=== PATIENT | male | born 1970 | race Caucasian/White ===

== ENCOUNTER 2016-03-28 13:58 | Emergency (ER) | payer MEDICARE, OTHER ==
--- NOTE | 2016-03-28 14:52 | ED ---
Extremity Problem HPI - General Chief complaint: Extremity Problem,Nontraumatic Stated complaint: Right Foot Swollen Time Seen by Provider: 03/28/16 14:21 Source: patient, RN notes reviewed Mode of arrival: ambulatory Limitations: no limitations - History of Present Illness Initial comments: Patient is a 45 [place] chief complaint of right ankle foot and pain swelling intermittently for the past 2 months. Patient reports he has a history of gout but usually this manifests in his left foot. Patient reports that his foot feels warm to touch. He states that is difficult to put weight on it. He has been on medications for gout including allopurinol and indomethacin. He states he did not take his indomethacin today. He has a past medical history of hypertension and diabetes. Patient reports that he is concerned that he has a acute gout Exacerbation. He denies any specific injury or trauma to the area. He denies any peripheral paresthesias. Patient reports that the swelling and pain will last for about 2 weeks and then will subside for a week. Patient reports that this is, his previous gout exacerbations - Related Data Home Medications Medication Instructions Recorded Confirmed Allopurinol [Zyloprim] 100 mg PO BID 03/28/16 03/28/16 Escitalopram [Lexapro] 10 mg PO DAILY 03/28/16 03/28/16 Fenofibrate Nanocrystallized 145 mg PO DAILY 03/28/16 03/28/16 [Tricor] Furosemide [Lasix] 40 mg PO DAILY 03/28/16 03/28/16 Indomethacin [Indocin] 50 mg PO BID PRN 03/28/16 03/28/16 Levothyroxine Sodium [Synthroid] 200 mcg PO DAILY 03/28/16 03/28/16 lamoTRIgine [LaMICtal] 100 mg PO DAILY 03/28/16 03/28/16 Previous Rx's Medication Instructions Recorded Colchicine [Colcrys] 0.6 mg PO BID #6 tablet 03/28/16 Indomethacin [Indocin] 50 mg PO BID #20 capsule 03/28/16 predniSONE 50 mg PO DAILY #5 tab 03/28/16 Allergies Allergy/AdvReac Type Severity Reaction Status Date / Time No Known Allergies Allergy Verified 03/28/16 15:12 Review of Systems ROS Statement: Those systems with pertinent positive or pertinent negative responses have been documented in the HPI. ROS Other: All systems not noted in ROS Statement are negative. Past Medical History Past Medical History: No Reported History, Thyroid Disorder Additional Past Medical History / Comment(s): gout History of Any Multi-Drug Resistant Organisms: None Reported Past Surgical History: Appendectomy Past Psychological History: No Psychological Hx Reported Smoking Status: Never smoker Past Alcohol Use History: None Reported Past Drug Use History: None Reported General Exam - General Exam Comments Initial Comments: Patient is a pleasant 45-year-old male. He does not appear to be in any acute distress. Limitations: no limitations General appearance: alert, in no apparent distress Head exam: Present: atraumatic Eye exam: Present: normal appearance, PERRL, EOMI. Absent: scleral icterus, conjunctival injection, periorbital swelling ENT exam: Present: normal exam, mucous membranes moist Neck exam: Present: normal inspection. Absent: tenderness, meningismus, lymphadenopathy Respiratory exam: Present: normal lung sounds bilaterally. Absent: respiratory distress, wheezes, rales, rhonchi, stridor Cardiovascular Exam: Present: regular rate, normal rhythm, normal heart sounds. Absent: systolic murmur, diastolic murmur, rubs, gallop, clicks GI/Abdominal exam: Present: soft, normal bowel sounds. Absent: distended, tenderness, guarding, rebound, rigid Extremities exam: Present: normal inspection, full ROM, normal capillary refill. Absent: tenderness, pedal edema, joint swelling, calf tenderness Right Lower Leg exam: Present: normal inspection, full ROM Ankle exam: Present: normal inspection, full ROM Foot/Toe exam: Present: full ROM, swelling (Diffuse swelling over the total metatarsals. Areas of erythema.), erythema. Absent: normal inspection Neurovascular tendon exam: Present: no vascular compromise Gait: observed and limited by pain Back exam: Present: normal inspection Neurological exam: Present: alert, oriented X3, CN II-XII intact Psychiatric exam: Present: normal affect, normal mood Skin exam: Present: warm, dry, intact, normal color. Absent: rash Course Vital Signs 03/28/16 15:08 Temperature 97.5 F L Pulse Rate 81 Respiratory 18 Rate Blood Pressure 152/88 O2 Sat by Pulse 95 Oximetry Medical Decision Making - Medical Decision Making Patient is a 45-year-old male with intermittent right foot pain. Patient reports he's had a history of gout exacerbation similar to this however they usually in the left foot. Patient's laboratory was reviewed. He does have an elevated uric acid of 10.1. Also elevated CRP of 35. No evidence of infection. Patient is currently taking allopurinol and indomethacin. Patient does have history of having a pressure takes Lasix. Patient will be placed on colchicine, steriods, and refill of indomethacin. Patient advised to follow up with PCP and advised on diet changes for gout. Return parameters discussed. - Lab Data Result diagrams: 03/28/16 14:40 03/28/16 14:40 Lab Results 03/28/16 03/28/16 Range/Units 14:40 14:40 WBC 8.3 (3.8-10.6) k/uL RBC 4.96 (4.30-5.90) m/uL Hgb 13.8 (13.0-17.5) gm/dL Hct 44.0 (39.0-53.0) % MCV 88.5 (80.0-100.0) fL MCH 27.8 (25.0-35.0) pg MCHC 31.4 (31.0-37.0) g/dL RDW 14.5 (11.5-15.5) % Plt Count 315 (150-450) k/uL Neutrophils % 64 % Lymphocytes % 25 % Monocytes % 5 % Eosinophils % 4 % Basophils % 1 % Neutrophils # 5.3 (1.3-7.7) k/uL Lymphocytes # 2.1 (1.0-4.8) k/uL Monocytes # 0.4 (0-1.0) k/uL Eosinophils # 0.3 (0-0.7) k/uL Basophils # 0.1 (0-0.2) k/uL Hypochromasia Slight Sodium 142 (137-145) mmol/L Potassium 4.1 (3.5-5.1) mmol/L Chloride 105 (98-107) mmol/L Carbon Dioxide 25 (22-30) mmol/L Anion Gap 12 mmol/L BUN 15 (9-20) mg/dL Creatinine 0.90 (0.66-1.25) mg/dL Est GFR (MDRD) Af Amer >60 (>60 ml/min/1.73 sqM) Est GFR (MDRD) Non-Af >60 (>60 ml/min/1.73 sqM) Glucose 113 H (74-99) mg/dL Uric Acid 10.1 H (3.5-8.5) mg/dL Calcium 9.4 (8.4-10.2) mg/dL C-Reactive Protein 35.0 H (<10.0) mg/L - Radiology Data Radiology results: report reviewed X-ray shows no acute fracture dislocation. The soft tissue appears unremarkable. Joint spaces are within normal limits. Disposition Clinical Impression: Gout attack Disposition: HOME SELF-CARE Condition: Good Instructions: Gout (ED) Additional Instructions: Patient advised to follow up with primary care provider within the next week. Take anti-inflammatory and steroids as prescribed. Patient is to return to the emergency department if any alarming signs or symptoms occur. Prescriptions: Colchicine [Colcrys] 0.6 mg PO BID #6 tablet Indomethacin [Indocin] 50 mg PO BID #20 capsule predniSONE 50 mg PO DAILY #5 tab Referrals: Toney Zayas DO [Primary Care Provider] - 1-2 days Time of Disposition: 15:36
[2016-03-28 15:00] LABS: Basophils # (A) 0.1 k/uL (0-0.2); Basophils % (A) 1 %; CH 27.9; CHCM 31.6; Eosinophils # (A) 0.3 k/uL (0-0.7); Eosinophils % (A) 4 %; HDW 2.88; HGB 13.8 gm/dL (13.0-17.5); Hypochromasia Slight; Luc # (Auto) 0.15; Luc % (Auto) 2; Lymphocytes # (A) 2.1 k/uL (1.0-4.8); Lymphocytes % (A) 25 %; MCH 27.8 pg (25.0-35.0); MCHC 31.4 g/dL (31.0-37.0); MCV 88.5 fL (80.0-100.0); Mean Platelet Volume 7.3; Monocytes # (A) 0.4 k/uL (0-1.0); Monocytes % (A) 5 %; Neutrophils # (A) 5.3 k/uL (1.3-7.7); Neutrophils % (A) 64 %; RBC 4.96 m/uL (4.30-5.90); RDW 14.5 % (11.5-15.5); WBC 8.3 k/uL (3.8-10.6); WBC (Perox) 8.32
[2016-03-28 15:08] VITALS: BP 152/88; PULSE 81; RESP 18; TEMP 97.5
[2016-03-28 15:10] LABS: Anion Gap 12 mmol/L; Blood Urea Nitrogen 15 mg/dL (9-20); Calcium 9.4 mg/dL (8.4-10.2); Carbon Dioxide 25 mmol/L (22-30); Chloride 105 mmol/L (98-107); Glucose 113 mg/dL (74-99); Non-African American GFR(MDRD) >60 (>60 ml/min/1.73 sqM); Potassium 4.1 mmol/L (3.5-5.1); Sodium 142 mmol/L (137-145); Uric Acid 10.1 mg/dL (3.5-8.5)
--- NOTE | 2016-03-28 15:10 | XR ---
EXAMINATION TYPE: XR foot complete RT DATE OF EXAM: 03/28/2016 2:49 PM CLINICAL HISTORY: pain TECHNIQUE: Frontal, lateral and oblique images of the right foot are obtained. COMPARISON: None. FINDINGS: There is no acute fracture/dislocation evident. The joint spaces appear within normal monosn its. The overlying soft tissue appears unremarkable. IMPRESSION: There is no acute fracture or dislocation. ICD 10 NO FRACTURE, INITIAL EVALUATION
[2016-03-28] MEDS ORDERED: KETOROLAC 60 MG/2 ML VIAL IM STA (15:27)
[2016-03-28] MEDS ORDERED: methylPREDNISolone SOD SUCCI 125 MG/2 ML VIAL IM ONE (15:27)
== END 2016-03-28 15:53 | disposition home or self-care (01) ==
LOC: EC 13:58
DX: M10.9 Gout, unspecified (principal); E07.9 Disorder of thyroid, unspecified; Z79.52 Long term (current) use of systemic steroids; Z79.899 Other long term (current) drug therapy
CPT/HCPCS: 36415; 80048; 84550; 85025; 86140; 73630; 99283; 96372 ×2; J2930; J1885

== ENCOUNTER 2017-02-01 11:18 | Emergency (ER) | payer OTHER, MEDICARE ==
[2017-02-01] MEDS ORDERED: SODIUM CHLORIDE 0.9% 1,000 ML IV ONE (11:51)
[2017-02-01] MEDS ORDERED: MORPHINE SULFATE 5 MG/ML SYRINGE IVP STA (11:59)
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
[2017-02-01 13:02] VITALS: RESP 18
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
[2017-02-01 13:36] VITALS: BP 139/90; PULSE 58; TEMP 96.9
== END 2017-02-01 13:50 | disposition home or self-care (01) ==
LOC: EC 11:18
DX: M79.1 Myalgia (principal); E07.9 Disorder of thyroid, unspecified; Z79.899 Other long term (current) drug therapy; V44.6XXA Car passenger injured in collision with heavy transport vehicle or bus in traffic accident, initial encounter; Y92.410 Unspecified street and highway as the place of occurrence of the external cause
CPT/HCPCS: 72128; 72125; 72131; 70450; 99284; 96374; 96361; J2274

== ENCOUNTER 2017-02-07 16:17 | Emergency (ER) | payer MEDICARE, OTHER ==
[2017-02-07] MEDS ORDERED: KETOROLAC 30 MG/ML 1 ML VIAL IM STA (17:00)
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
--- NOTE | 2017-02-07 17:26 | XR ---
EXAMINATION TYPE: XR foot complete LT DATE OF EXAM: 02/07/2017 COMPARISON: NONE HISTORY: Back pain TECHNIQUE: 3 views FINDINGS: There is some narrowing and spurring at the first MP joint and the IP joint of the big toe. I see no fracture nor dislocation. There is an Achilles calcaneal spur. Metatarsals are intact. IMPRESSION: Mild osteoarthritis. No fracture seen.
--- NOTE | 2017-02-07 17:36 | XR ---
EXAMINATION TYPE: XR ankle complete LT DATE OF EXAM: 02/07/2017 COMPARISON: NONE HISTORY: Pain TECHNIQUE: 3 views FINDINGS: There is soft tissue swelling around the ankle joint. There is an Achilles calcaneal spur. I see no fracture. IMPRESSION: Soft tissue swelling. No fracture seen.
--- NOTE | 2017-02-07 17:37 | XR ---
EXAMINATION TYPE: XR lumbar spine 2 or 3V DATE OF EXAM: 02/07/2017 COMPARISON: NONE HISTORY: Pain TECHNIQUE: 3 views FINDINGS: Lumbar vertebra have normal alignment. Posterior elements are intact. Sacroiliac joints are normal. Disc spaces are fairly normal. IMPRESSION: Negative lumbar spine exam. Minimal spurring noted.
[2017-02-07 23:33] VITALS: BP 160/90; PULSE 87; RESP 18; TEMP 98
== END 2017-02-07 18:01 | disposition home or self-care (01) ==
LOC: EC 16:17
DX: S93.402A Sprain of unspecified ligament of left ankle, initial encounter (principal); S96.912A Strain of unspecified muscle and tendon at ankle and foot level, left foot, initial encounter; M54.5 Low back pain; E07.9 Disorder of thyroid, unspecified; M10.9 Gout, unspecified; Z79.899 Other long term (current) drug therapy; V44.5XXA Car driver injured in collision with heavy transport vehicle or bus in traffic accident, initial encounter; Y92.410 Unspecified street and highway as the place of occurrence of the external cause
CPT/HCPCS: 72100; 73610; 73630; 99284; 96372; J1885

== ENCOUNTER 2017-02-11 11:11 | Emergency (ER) | payer OTHER, MEDICARE ==
[2017-02-11] MEDS ORDERED: KETOROLAC 30 MG/ML 1 ML VIAL IVP STA ×2 (11:44→13:07)
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
[2017-02-11 12:17] LABS: Basophils # (A) 0.1 k/uL (0-0.2); Basophils % (A) 1 %; Eosinophils # (A) 0.2 k/uL (0-0.7); Eosinophils % (A) 2 %; HCT 41.3 % (39.0-53.0); Lymphocytes # (A) 1.8 k/uL (1.0-4.8); Lymphocytes % (A) 19 %; MCHC 31.4 g/dL (31.0-37.0); MCV 92.6 fL (80.0-100.0); Mean Platelet Volume 8.4; Monocytes # (A) 0.7 k/uL (0-1.0); Monocytes % (A) 7 %; Neutrophils # (A) 6.6 k/uL (1.3-7.7); Neutrophils % (A) 70 %; Platelet Count 332 k/uL (150-450); RBC 4.47 m/uL (4.30-5.90); RDW 15.7 % (11.5-15.5); WBC 9.5 k/uL (3.8-10.6)
[2017-02-11 12:26] LABS: ALT 53 U/L (21-72); AST 34 U/L (17-59); Albumin 4.4 g/dL (3.5-5.0); Alkaline Phosphatase 52 U/L (38-126); Anion Gap 12 mmol/L; Blood Urea Nitrogen 18 mg/dL (9-20); Calcium 9.7 mg/dL (8.4-10.2); Carbon Dioxide 27 mmol/L (22-30); Chloride 103 mmol/L (98-107); Glucose 104 mg/dL (74-99); Magnesium 1.9 mg/dL (1.6-2.3); Potassium 4.5 mmol/L (3.5-5.1); Sodium 142 mmol/L (137-145); Total Bilirubin 0.5 mg/dL (0.2-1.3); Total Protein 7.2 g/dL (6.3-8.2); Uric Acid 6.5 mg/dL (3.5-8.5)
[2017-02-11 12:46] LABS: Creatine Kinase MB 2.2 ng/mL (0.0-2.4)
--- NOTE | 2017-02-11 12:46 | XR ---
EXAMINATION TYPE: XR chest 2V DATE OF EXAM: 02/11/2017 HISTORY: cough. REFERENCE: NONE. FINDINGS: The lungs are clear. Pleural space are clear. The heart is not enlarged. There is mild vasc ular congestion and subtle interstitial change.. IMPRESSION: FINDINGS MOST CONSISTENT WITH MILD CONGESTIVE HEART FAILURE.
[2017-02-11] MEDS ORDERED: ORPHENADRINE 30 MG/ML 2 ML VIAL IVP STA (13:07)
[2017-02-11] MEDS ORDERED: DEXAMETHASONE SOD PHOSPHATE 10 MG/ML 1 ML VIAL IV STA (13:08)
[2017-02-11 14:43] VITALS: BP 155/101; PULSE 79; RESP 16; TEMP 98
== END 2017-02-11 14:41 | disposition home or self-care (01) ==
LOC: EC 11:11
DX: M54.41 Lumbago with sciatica, right side (principal); M54.42 Lumbago with sciatica, left side; M79.1 Myalgia; E07.9 Disorder of thyroid, unspecified; Z79.52 Long term (current) use of systemic steroids; Z79.899 Other long term (current) drug therapy
CPT/HCPCS: 99284; 96374; 96375 ×2; 96376; 36415; 85379; 83880; 80053; 82550; 82553; 83735; 84550; 85025; 71046; J1100; J2360; J1885

== ENCOUNTER 2017-03-02 18:12 | Emergency (ER) | payer MEDICARE, OTHER ==
[2017-03-02 18:19] VITALS: BP 121/79; PULSE 119; RESP 18; TEMP 98.6
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
--- NOTE | 2017-03-02 19:46 | XR ---
PROCEDURE: XR ankle complete RT, 3 views DATE AND TIME: 03/02/2017 7:03 PM REFERRING PHYSICIAN: Becca Johnston CLINICAL INDICATION: [facility], Pain TECHNIQUE: Department protocol. COMPARISON: None FINDINGS: There is no fracture or malalignment. The soft tissues are unremarkable. IMPRESSION: NO ACUTE PROCESS.
--- NOTE | 2017-03-02 19:46 | XR ---
PROCEDURE: XR foot complete RT, 3 views DATE AND TIME: 03/02/2017 7:03 PM REFERRING PHYSICIAN: Becca Johnston CLINICAL INDICATION: [facility], Pain TECHNIQUE: Department protocol. COMPARISON: 03/28/2016 FINDINGS: There is no fracture or malalignment. The soft tissues are unremarkable. IMPRESSION: NO ACUTE PROCESS.
== END 2017-03-02 20:08 | disposition home or self-care (01) ==
LOC: EC 18:12
DX: S93.401A Sprain of unspecified ligament of right ankle, initial encounter (principal); S90.31XA Contusion of right foot, initial encounter; M10.9 Gout, unspecified; E07.9 Disorder of thyroid, unspecified; Z79.1 Long term (current) use of non-steroidal anti-inflammatories (NSAID); Z79.899 Other long term (current) drug therapy; V99.XXXA Unspecified transport accident, initial encounter
CPT/HCPCS: 99283

== ENCOUNTER → 2017-03-05 | Outpatient (CLI) | payer OTHER, MEDICARE | END | disposition home or self-care (01) | LOC: RADMRIMAIN 17:53 | PROVIDERS: ATTEND Family Medicine ==

== ENCOUNTER 2017-10-01 09:12 | Emergency (ER) | payer OTHER, MEDICARE ==
--- NOTE | 2017-10-01 09:51 | ED ---
Extremity Problem HPI - General Chief complaint: Extremity Problem,Nontraumatic Stated complaint: leg pain Time Seen by Provider: 10/01/17 09:22 Source: patient, RN notes reviewed Mode of arrival: wheelchair Limitations: no limitations - History of Present Illness Initial comments: This is a 46-year-old male presents emergency Department with chief complaint of left leg pain over the last 4 days. He states is progressively getting worse he has noticed some swelling to his left leg. He states there is no localized pain states the pain is involving his whole leg. He states there is swelling noted. He does admit that he's had gout in the past but this is much different. Patient denies any trauma. Patient did admit that he went to [facility] recently but he has no history DVT in no clotting disorders for the patient or his known family. Patient denies any fever, chills, abdominal pain, back pain. - Related Data Home Medications Medication Instructions Recorded Confirmed Allopurinol [Zyloprim] 100 mg PO AC-BID 03/28/16 10/01/17 Escitalopram [Lexapro] 10 mg PO DAILY 03/28/16 10/01/17 Furosemide [Lasix] 40 mg PO DAILY 03/28/16 10/01/17 Indomethacin [Indocin] 50 mg PO BID PRN 03/28/16 10/01/17 Levothyroxine Sodium [Synthroid] 300 mcg PO DAILY 02/01/17 10/01/17 buPROPion XL [Wellbutrin Xl] 300 mg PO DAILY 10/01/17 10/01/17 lamoTRIgine [LaMICtal] 100 mg PO DAILY 10/01/17 10/01/17 Previous Rx's Medication Instructions Recorded Cephalexin [Keflex] 500 mg PO Q6HR #28 cap 10/01/17 Indomethacin [Indocin] 50 mg PO TID #30 capsule 10/01/17 Allergies Allergy/AdvReac Type Severity Reaction Status Date / Time No Known Allergies Allergy Verified 10/01/17 09:17 Review of Systems ROS Statement: Those systems with pertinent positive or pertinent negative responses have been documented in the HPI. ROS Other: All systems not noted in ROS Statement are negative. Past Medical History Past Medical History: Thyroid Disorder Additional Past Medical History / Comment(s): gout History of Any Multi-Drug Resistant Organisms: None Reported Past Surgical History: Appendectomy Past Psychological History: No Psychological Hx Reported Smoking Status: Never smoker Past Alcohol Use History: None Reported Past Drug Use History: None Reported General Exam Limitations: no limitations General appearance: alert, in no apparent distress Head exam: Present: atraumatic, normocephalic, normal inspection Respiratory exam: Present: normal lung sounds bilaterally. Absent: respiratory distress, wheezes, rales, rhonchi, stridor Cardiovascular Exam: Present: regular rate, normal rhythm, normal heart sounds. Absent: systolic murmur, diastolic murmur, rubs, gallop, clicks GI/Abdominal exam: Present: soft, normal bowel sounds. Absent: distended, tenderness, guarding, rebound, rigid Extremities exam: Present: other (Left leg there is moderate swelling, pedal pulses are equal bilaterally there is diffuse tenderness of the leg. Patient is full range of motion full-strength equal bilaterally 5/5) Back exam: Present: full ROM. Absent: tenderness Neurological exam: Present: alert, oriented X3, CN II-XII intact, reflexes normal. Absent: motor sensory deficit Skin exam: Present: warm, dry, intact, normal color. Absent: rash Course Vital Signs 10/01/17 09:15 Temperature 98.4 F Pulse Rate 92 Respiratory 20 Rate Blood Pressure 149/89 O2 Sat by Pulse 100 Oximetry Medical Decision Making - Medical Decision Making 46-year-old male present emergency from for left leg pain. Patient has left leg swelling. Initial workup included ultrasound venous Doppler left leg showed negative for acute DVT. Patient has Pulse of the lower extremity equal bilaterally. Patient had lab work at this time which shows elevated CRP, uric acid. Concern for gout this time will be treated. Patient does have mild erythema of the calf region concern for possible sinusitis with treated with Keflex at this time return parameters discussed. - Lab Data Result diagrams: 10/01/17 11:30 10/01/17 11:30 Lab Results 10/01/17 10/01/17 10/01/17 Range/Units 11:30 11:30 11:30 WBC 11.4 H (3.8-10.6) k/uL RBC 5.00 (4.30-5.90) m/uL Hgb 13.8 (13.0-17.5) gm/dL Hct 42.3 (39.0-53.0) % MCV 84.6 (80.0-100.0) fL MCH 27.6 (25.0-35.0) pg MCHC 32.7 (31.0-37.0) g/dL RDW 14.1 (11.5-15.5) % Plt Count 250 (150-450) k/uL Neutrophils % 71 % Lymphocytes % 17 % Monocytes % 9 % Eosinophils % 1 % Basophils % 0 % Neutrophils # 8.1 H (1.3-7.7) k/uL Lymphocytes # 1.9 (1.0-4.8) k/uL Monocytes # 1.1 H (0-1.0) k/uL Eosinophils # 0.1 (0-0.7) k/uL Basophils # 0.0 (0-0.2) k/uL Sodium 141 (137-145) mmol/L Potassium 4.2 (3.5-5.1) mmol/L Chloride 107 (98-107) mmol/L Carbon Dioxide 24 (22-30) mmol/L Anion Gap 10 mmol/L BUN 13 (9-20) mg/dL Creatinine 0.60 L (0.66-1.25) mg/dL Est GFR (CKD-EPI)AfAm >90 (>60 ml/min/1.73 sqM) Est GFR (CKD-EPI)NonAf >90 (>60 ml/min/1.73 sqM) Glucose 107 H (74-99) mg/dL Plasma Lactic Acid [place] 1.1 (0.7-2.0) mmol/L Uric Acid 11.1 H (3.5-8.5) mg/dL Calcium 9.3 (8.4-10.2) mg/dL C-Reactive Protein 61.2 H (<10.0) mg/L Disposition Clinical Impression: Gout, Leg edema, Cellulitis Disposition: HOME SELF-CARE Condition: Stable Instructions: Gout (ED) Additional Instructions: Please return to the Emergency Department if symptoms worsen or any other concerns. Prescriptions: Cephalexin [Keflex] 500 mg PO Q6HR #28 cap Indomethacin [Indocin] 50 mg PO TID #30 capsule Is patient prescribed a controlled substance at d/c from ED?: No Referrals: Toney Zayas DO [Primary Care Provider] - 1-2 days Time of Disposition: 12:28
--- NOTE | 2017-10-01 11:02 | US ---
EXAMINATION TYPE: US venous doppler duplex LE LT DATE OF EXAM: 10/01/2017 10:48 AM COMPARISON: NONE CLINICAL HISTORY: Pain. SIDE PERFORMED: Left TECHNIQUE: The lower extremity deep venous system is examined utilizing real time linear array sonog yuli with graded compression, doppler sonography and color-flow sonography. VESSELS IMAGED: External Iliac Vein (EIV) Common Femoral Vein Deep Femoral Vein Greater Saphenous Vein * Femoral Vein Popliteal Vein Small Saphenous Vein * Proximal Calf Veins (* superficial vessels) Grayscale, color doppler, spectral doppler imaging performed of the deep veins of the lower extremiti es. There is normal flow, compressibility, vascular waveforms. Patient obese. Left Leg: Negative for DVT IMPRESSION: No evident deep venous thrombosis at or above the left knee. Follow-up as indicated in 24 to 48 hours.
[2017-10-01] MEDS ORDERED: KETOROLAC 30 MG/ML 1 ML VIAL IVP STA (11:16)
[2017-10-01 11:53] LABS: Basophils % (A) 0 %; Eosinophils # (A) 0.1 k/uL (0-0.7); Eosinophils % (A) 1 %; HCT 42.3 % (39.0-53.0); HGB 13.8 gm/dL (13.0-17.5); Lymphocytes # (A) 1.9 k/uL (1.0-4.8); Lymphocytes % (A) 17 %; MCH 27.6 pg (25.0-35.0); MCHC 32.7 g/dL (31.0-37.0); MCV 84.6 fL (80.0-100.0); Mean Platelet Volume 7.5; Monocytes # (A) 1.1 k/uL (0-1.0); Monocytes % (A) 9 %; Neutrophils # (A) 8.1 k/uL (1.3-7.7); Neutrophils % (A) 71 %; Platelet Count 250 k/uL (150-450); RDW 14.1 % (11.5-15.5); WBC 11.4 k/uL (3.8-10.6)
[2017-10-01 12:00] LABS: Anion Gap 10 mmol/L; Blood Urea Nitrogen 13 mg/dL (9-20); C Reactive Protein 61.2 mg/L (<10.0); Calcium 9.3 mg/dL (8.4-10.2); Carbon Dioxide 24 mmol/L (22-30); Chloride 107 mmol/L (98-107); Glucose 107 mg/dL (74-99); Potassium 4.2 mmol/L (3.5-5.1); Sodium 141 mmol/L (137-145); Uric Acid 11.1 mg/dL (3.5-8.5)
[2017-10-01] MEDS ORDERED: COLCHICINE 0.6 MG EACH PO STA (12:25)
[2017-10-01] MEDS ORDERED: ACET/COD 300 MG/30 MG STARTER PACK 6 TAB BTL PO STA (12:33)
[2017-10-01 12:43] VITALS: BP 149/77; PULSE 88; RESP 18; TEMP 98.5
== END 2017-10-01 12:48 | disposition home or self-care (01) ==
LOC: EC 09:12
DX: M10.9 Gout, unspecified (principal); R60.0 Localized edema; L03.116 Cellulitis of left lower limb; E07.9 Disorder of thyroid, unspecified; Z79.899 Other long term (current) drug therapy
CPT/HCPCS: 36415; 80048; 83605; 84550; 85025; 86140; 87040; 93971; 99284; 96374; J1885

== ENCOUNTER 2018-05-13 15:47 | Emergency (ER) | payer MEDICARE, OTHER ==
[2018-05-13 15:53] VITALS: BP 175/77; PULSE 108; RESP 20; TEMP 97.5
[2018-05-13] MEDS ORDERED: cefTRIAXone 1,000 MG VIAL (IM USE) IM STA (16:32)
[2018-05-13] MEDS ORDERED: LIDOCAINE 1% INJ 10MG/ML (20 ML MDV) SQ STA (16:32)
[2018-05-13] MEDS ORDERED: DIPH,PERTUS(ACELL)TETVAC-LF 0.5 ML VIAL IM ONE (16:32)
--- NOTE | 2018-05-13 16:39 | XR ---
EXAMINATION TYPE: XR hand complete LT DATE OF EXAM: 05/13/2018 COMPARISON: NONE HISTORY: Laceration TECHNIQUE: 3 views FINDINGS: There is some soft tissue deformity at the tip of the index finger consistent with lacerati on. I see no sign of foreign body. There is no evidence of a fracture. IMPRESSION: Laceration deformity of the tip of the index finger involving the nailbed.
--- NOTE | 2018-05-13 17:47 | ED ---
General Adult HPI - General Chief complaint: Wound/Laceration Stated complaint: Hand laceration Time Seen by Provider: 05/13/18 16:10 Source: patient, RN notes reviewed, old records reviewed Mode of arrival: ambulatory Limitations: no limitations - History of Present Illness Initial comments: 47-year-old male patient with no pertinent past medical history presents to ED with injury to second digit of left hand. Patient reports he was using a table saw and actually cut the tip of his left second finger off. Patient states that this injury doesn't involve the distal aspect of his nail bed. Patient doesn't know date of last tetanus. Patient denies any other complaints. Systemic: Pt denies fatigue, myalgia, fever/chills, rash. Pt denies weakness, night sweats, weight loss. Neuro: Pt denies headache, visual disturbances, syncope or pre-syncope. HEENT: Pt denies ocular discharge or irritation, otalgia, rhinorrhea, pharyngitis or notable lymphadenopathy. Cardiopulmonary: Pt denies chest pain, SOB, heart palpitations, dyspnea on exertion. Abdominal/GI: Pt denies abdominal pain, n/v/d. : Pt denies dysuria, burning w/ urination, frequency/urgency. Denies new onset urinary or bowel incontinence. MSK: Pt denies myalgia, loss of strength or function in extremities. Neuro: Pt denies new onset weakness, paresthesias. - Related Data Home Medications Medication Instructions Recorded Confirmed Allopurinol [Zyloprim] 100 mg PO AC-BID 03/28/16 10/01/17 Escitalopram [Lexapro] 10 mg PO DAILY 03/28/16 10/01/17 Furosemide [Lasix] 40 mg PO DAILY 03/28/16 10/01/17 Indomethacin [Indocin] 50 mg PO BID PRN 03/28/16 10/01/17 Levothyroxine Sodium [Synthroid] 300 mcg PO DAILY 02/01/17 10/01/17 buPROPion XL [Wellbutrin Xl] 300 mg PO DAILY 10/01/17 10/01/17 lamoTRIgine [LaMICtal] 100 mg PO DAILY 10/01/17 10/01/17 Previous Rx's Medication Instructions Recorded Cephalexin [Keflex] 500 mg PO Q6HR #28 cap 10/01/17 Indomethacin [Indocin] 50 mg PO TID #30 capsule 10/01/17 Cephalexin [Keflex] 500 mg PO Q6HR 10 Days #40 cap 05/13/18 Allergies Allergy/AdvReac Type Severity Reaction Status Date / Time No Known Allergies Allergy Verified 05/13/18 15:53 Review of Systems ROS Statement: Those systems with pertinent positive or pertinent negative responses have been documented in the HPI. ROS Other: All systems not noted in ROS Statement are negative. Past Medical History Past Medical History: Thyroid Disorder Additional Past Medical History / Comment(s): gout History of Any Multi-Drug Resistant Organisms: None Reported Past Surgical History: Appendectomy Past Psychological History: No Psychological Hx Reported Smoking Status: Never smoker Past Alcohol Use History: None Reported Past Drug Use History: None Reported General Exam - General Exam Comments Initial Comments: Constitutional: NAD, AOX3, Pt has pleasant affect. HEENT: NC/AT, trachea midline, neck supple, no lymphadenopathy. Posterior pharynx non erythematous, without exudates. External ears appear normal, without discharge. Mucous membranes moist. Eyes PERRLA, EOM intact. There is no scleral icterus. No pallor noted. Cardiopulmonary: RRR, no murmurs, rubs or gallops, no JVD noted. Lungs CTAB in anterior and posterior patel. No peripheral edema. Abdominal exam: Abdomen soft and non-distended. Abdomen non-tender to palpation in all 4 quadrants. Bowel sounds active in LLQ. No hepatosplenomegaly. No ecchymosis Neuro: CN II-XII grossly intact. No nuchal rigidity. MSK: Left second digit partial amputation at dorsal aspect. Approximately half of nail removed. No osseus involvement or foreign body. Wound vigorously irrigated with 1L NS. Placed in nonadherant dressing and finger splint. Neurovascularly intact. No posterior calf tenderness bilaterally, homans sign negative bilaterally. Posterior tibialis and radial pulse +2 bilaterally. Sensation intact in upper and lower extremities. Full active ROM in upper and lower extremities, 5/5 stregnth. Limitations: no limitations Course Vital Signs 05/13/18 15:50 Temperature 97.5 F L Pulse Rate 108 H Respiratory 20 Rate Blood Pressure 175/77 O2 Sat by Pulse 96 Oximetry Medical Decision Making - Medical Decision Making 47-year-old male patient with no pertinent past medical history presents to ED with injury to second digit of left hand. Patient reports he was using a table saw and actually cut the tip of his left second finger off. Patient states that this injury doesn't involve the distal aspect of his nail bed. Patient doesn't know date of last tetanus. Patient denies any other complaints. Physical exam displayed: Left second digit partial amputation of distal phalanx at dorsal aspect. Approximately half of nail removed. No osseus involvement of foreign body. Wound vigorously irrigated with 1L NS. Placed in nonadherant dressing and finger splint. Neurovascularly intact. Plain film of hand displayed laceration deformity tip of index finger involving the nail bed. Patient tetanus updated, administered 1 g of Rocephin ED. Patient to be discharged with Keflex. Patient to follow up with hand surgeon 1-2 days. Patient will wear a finger splint until follow-up. Patient monitor for signs symptoms of infection. Patient to return to ER if condition worsens anyway. Case discussed with Dr. Grider. Disposition Clinical Impression: Laceration Disposition: HOME SELF-CARE Condition: Stable Instructions (If sedation given, give patient instructions): Laceration (ED) Additional Instructions: Patient to adhere to previously discussed treatment plan and will take medication(s) as directed. Patient to follow up with PCP in 1-2 days. Patient to return to ED if symptoms do not improve. Please follow-up with orthopedic surgeon tomorrow. Please take medications as prescribed. Please return to ER if condition worsens in any way. Prescriptions: Cephalexin [Keflex] 500 mg PO Q6HR 10 Days #40 cap Is patient prescribed a controlled substance at d/c from ED?: No Referrals: Toney Zayas DO [Primary Care Provider] - 1-2 days Rodrigo Davis DO [Medical Doctor] - 1-2 days
--- NOTE | 2018-05-13 18:11 | ED ---
Medical Decision Making - Medical Decision Making pt vital signs not repeated by nursing staff prior to DC despite request. Disposition Clinical Impression: Laceration Disposition: HOME SELF-CARE Condition: Stable Instructions (If sedation given, give patient instructions): Laceration (ED) Additional Instructions: Patient to adhere to previously discussed treatment plan and will take medication(s) as directed. Patient to follow up with PCP in 1-2 days. Patient to return to ED if symptoms do not improve. Please follow-up with orthopedic surgeon tomorrow. Please take medications as prescribed. Please return to ER if condition worsens in any way. Prescriptions: Cephalexin [Keflex] 500 mg PO Q6HR 10 Days #40 cap Is patient prescribed a controlled substance at d/c from ED?: No Referrals: Toney Zayas DO [Primary Care Provider] - 1-2 days Rodrigo Davis DO [Medical Doctor] - 1-2 days
== END 2018-05-13 17:56 | disposition home or self-care (01) ==
LOC: EC 15:47
DX: S61.311A Laceration without foreign body of left index finger with damage to nail, initial encounter (principal); E07.9 Disorder of thyroid, unspecified; M10.9 Gout, unspecified; Z79.890 Hormone replacement therapy; Z79.899 Other long term (current) drug therapy; Z23 Encounter for immunization; W27.0XXA Contact with workbench tool, initial encounter; Y93.89 Activity, other specified; Y92.009 Unspecified place in unspecified non-institutional (private) residence as the place of occurrence of the external cause
CPT/HCPCS: 73130; 90715; 99283; 96372; 90471; J2001; J0696

== ENCOUNTER → 2020-08-06 | Outpatient (CLI) | payer MEDICARE, OTHER | END | disposition home or self-care (01) | LOC: LABPAT 11:16 | PROVIDERS: ATTEND Surgery | DX: Z20.822 Contact with and (suspected) exposure to COVID-19 (principal) | CPT/HCPCS: U0003; U0005 ==

== ENCOUNTER 2020-08-13 09:12 | Day surgery (SDC) | payer MEDICARE, OTHER ==
[2020-08-13 10:21] VITALS: TEMP 97.1
[2020-08-13] MEDS ORDERED: LACTATED RINGERS 1,000 ML IV ONE (10:25)
[2020-08-13] MEDS ORDERED: PROPOFOL 10 MG/ML 20 ML VIAL IV ONE (11:13)
[2020-08-13] MEDS ORDERED: LIDOCAINE 1% INJ 10MG/ML (20 ML MDV) ONE (11:13)
--- NOTE | 2020-08-13 11:36 | P.HPIHPCON ---
History of Present Illness H&P Date: 08/13/20 49-year-old male presents today for screening colonoscopy. He has never had a colonoscopy previously. Denies blood in his stool. Denies any family history of colon cancer. No recent abdominal pain. Consent for Procedure: I have explained the operation/procedure to the patient, including the risks, benefits, side effects, alternative therapies (including not receiving the proposed treatment or service), the likelihood of the patient achieving his/her goals, and potential recuperation problems for the procedure/sedation/analgesia, as well as any blood products, if indicated. I also explained to the patient the risks, benefits and side effects of the alternatives, as well as the risks related to not receiving the proposed procedure, care, treatment, or services. - Review of Systems All systems: negative Past Medical History Past Medical History: Thyroid Disorder Additional Past Medical History / Comment(s): gout History of Any Multi-Drug Resistant Organisms: None Reported Past Surgical History: Appendectomy Past Psychological History: No Psychological Hx Reported Past Alcohol Use History: None Reported Past Drug Use History: None Reported Medications and Allergies Home Medications Medication Instructions Recorded Confirmed Type Escitalopram [Lexapro] 10 mg PO DAILY 03/28/16 08/13/20 History Furosemide [Lasix] 40 mg PO DAILY 03/28/16 08/13/20 History Indomethacin [Indocin] 50 mg PO BID PRN 03/28/16 08/13/20 History allopurinoL [Zyloprim] 100 mg PO AC-BID 03/28/16 08/13/20 History Levothyroxine Sodium [Synthroid] 300 mcg PO DAILY 02/01/17 08/13/20 History Cephalexin [Keflex] 500 mg PO Q6HR #28 cap 10/01/17 Rx Indomethacin [Indocin] 50 mg PO TID #30 capsule 10/01/17 Rx buPROPion XL [Wellbutrin Xl] 300 mg PO DAILY 10/01/17 08/13/20 History lamoTRIgine [LaMICtal] 100 mg PO DAILY 10/01/17 08/13/20 History Cephalexin [Keflex] 500 mg PO Q6HR 10 Days #40 cap 05/13/18 Rx Allergies Allergy/AdvReac Type Severity Reaction Status Date / Time No Known Allergies Allergy Verified 08/13/20 10:17 Surgical - Exam Osteopathic Statement: *. No significant issues noted on an osteopathic structural exam other than those noted in the History and Physical/Consult. Vital Signs Temp Pulse Resp BP Pulse Ox 97.1 F L 72 17 150/89 97 08/13/20 10:21 08/13/20 10:21 08/13/20 10:21 08/13/20 10:08/13/20 10:21 - General no distress - Neck trachea midline - Respiratory normal respiratory effort - Abdomen Abdomen: soft, non tender Assessment and Plan Plan: 49-year-old male presents for screening colonoscopy. Risks, benefits and alternatives were provided. Consent was obtained. Further recommendations after procedure.
[2020-08-13] MEDS ORDERED: LACTATED RINGERS 1,000 ML IV SCH (11:37)
--- NOTE | 2020-08-13 11:38 | P.PCN ---
Date of Procedure: 08/13/20 Preoperative Diagnosis: Screening Postoperative Diagnosis: Diverticulosis Procedure(s) Performed: Colonoscopy Anesthesia: MAC Surgeon: Kush Abdalla Pathology: none sent Condition: stable Disposition: same day Indications for Procedure: 49-year-old male presents for screening colonoscopy. No recent blood in his stool. No family history of colon cancer. Never had a colonoscopy previously. Operative Findings: Diverticulosis Description of Procedure: The patient was brought to the endoscopy suite and placed in left lateral decubitus position. Adequate sedation was achieved using conscious sedation. A digital rectal exam was performed and mild internal hemorrhoids were palpated. An endoscope was then placed in the rectum and advanced to the cecum as identified by landmarks including the appendiceal orifice and the ileocecal valve.. Colonoscope was then slowly withdrawn, examining for any mucosal abnormality. The cecum, ascending, transverse, descending and sigmoid colon were visualized adequately. No evidence of large neoplastic lesion. No obvious polyps were noted. Mild amount of diverticulosis scattered through the sigmoid colon. Retroflexion was performed in the rectum and internal hemorrhoids were visible. Excess air was removed, the colonoscope withdrawn and the procedure terminated. The patient was then transferred to the recovery unit in stable condition. Repeat colonoscopy should be performed in 8 years.
[2020-08-13 11:40] VITALS: RESP 16
[2020-08-13 11:56] VITALS: BP 153/85; PULSE 65
== END 2020-08-13 12:24 | disposition home or self-care (01) ==
LOC: ORWHC2ENDO 09:12
PROVIDERS: ATTEND Surgery
DX: Z12.11 Encounter for screening for malignant neoplasm of colon (principal); K57.30 Diverticulosis of large intestine without perforation or abscess without bleeding; E07.9 Disorder of thyroid, unspecified; Z90.89 Acquired absence of other organs; Z79.899 Other long term (current) drug therapy
CPT/HCPCS: J2001; J2704; G0121

== ENCOUNTER → 2022-10-25 | Outpatient (CLI) | payer MEDICARE, OTHER ==
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
== END | disposition home or self-care (01) ==
LOC: RADMRIMAIN 15:30
PROVIDERS: ATTEND Physical Medicine & Rehabilitation
DX: M41.26 Other idiopathic scoliosis, lumbar region (principal); M43.16 Spondylolisthesis, lumbar region; M51.16 Intervertebral disc disorders with radiculopathy, lumbar region; M47.26 Other spondylosis with radiculopathy, lumbar region
CPT/HCPCS: 72148

== ENCOUNTER → 2023-09-11 | Outpatient (CLI) | payer MEDICARE, OTHER | END | disposition home or self-care (01) | LOC: LABPRL 15:10 | PROVIDERS: ATTEND Dentist General Practice | DX: Z00.00 Encounter for general adult medical examination without abnormal findings (principal); Z12.5 Encounter for screening for malignant neoplasm of prostate; M10.9 Gout, unspecified; E03.9 Hypothyroidism, unspecified; R73.9 Hyperglycemia, unspecified | CPT/HCPCS: 84439; 80061; 80053; 84443; 85025; 83036; G0103 ==